=== PATIENT | female | born 2000 | race Caucasian/White ===

== ENCOUNTER 2019-06-29 22:52 | Emergency (ER) | payer OTHER ==
[~2019-06-29] VITALS: Ht 152.4 cm; Wt 63.5 kg
[~2019-06-29 22:52] MED LIST: BUSPAR 5 MG TABL5 M1
[2019-06-29] MEDS ORDERED: LATUDA40 MG PO (23:12)
[2019-06-30] MEDS ORDERED: IBUPROFEN 800800 M1 PO (00:05)
[2019-06-30] MEDS ORDERED: FLEXERIL PO (00:05)
[2019-06-30 00:21] VITALS: BP 118/67
== END 2019-06-30 00:21 | disposition home or self-care (01) ==
LOC: M.ERS 22:52
DX: S63.8X1A Sprain of other part of right wrist and hand, initial encounter (principal); R00.0 Tachycardia, unspecified; Z91.040 Latex allergy status; Z88.0 Allergy status to penicillin; V89.2XXA Person injured in unspecified motor-vehicle accident, traffic, initial encounter; Y93.89 Activity, other specified; Y92.89 Other specified places as the place of occurrence of the external cause; Y99.8 Other external cause status